=== PATIENT | male | born 1985 | race African-American/Black ===

== ENCOUNTER 2021-05-25 08:06 | Inpatient (IN) | payer BC, MEDICAID ==
[~2021-05-25] VITALS: Ht 177.8 cm; Wt 95.3 kg
[2021-05-25] MEDS ORDERED: ONDANSETRON HCL 4MG/2ML INJ IV STA (08:18)
[2021-05-25] MEDS ORDERED: KETOROLAC 30MG/ML VIAL IV STA (08:18)
[2021-05-25] MEDS ORDERED: AZITHROMYCIN 500MG/250ML 250 ML IV ONE (09:30)
[2021-05-25] MEDS ORDERED: CEFTRIAXONE 1 G PREMIX 50 ML IV ONE (09:30)
[2021-05-25] MEDS ORDERED: HYDRALAZINE 20MG/ML VIAL IV ONE (10:00)
[2021-05-25] MEDS ORDERED: BUPRENORPHINE 8MG SL TABLET SL ONE ×2 (10:00→13:15)
[2021-05-25 10:18] LABS: BG BASE EXCESS -3.4 mmol/L (-2.0-2.0); BG DEOXYHEMOGLOBIN 12.4 % (0.0-5.0); BG FRACTION INSPIRED OXYGEN 100; BG HCO3 ACT 20.6 mmol/L (22.0-26.0); BG METHEMOGLOBIN 0.5 % (0.0-1.5); BG OXYGEN SATURATION 87.5 % (92.0-98.5); BG OXYHEMOGLOBIN 87.1 % (94.0-97.0); BG PCO2 35.2 mmHg (35.0-45.0); BG PH 7.386 (7.350-7.450); BG PO2 51.8 mmHg (75.0-100.0); BG SAMPLE SITE RIGHT RADIAL; BG TOTAL HEMOGLOBIN 18.4 g/dL (12.0-18.0); BG VENT MODE MASK - NRB
[2021-05-25 10:34] LABS: HEMATOCRIT. 51.5 % (42.0-52.0); HEMOGLOBIN. 17.4 g/dL (14.0-18.0); MEAN CORPUSCULAR HEMOGLOBIN 29.5 pg (28.0-32.0); MEAN CORPUSCULAR VOLUME 87.3 fL (80.0-94.0); MEAN PLATELET VOLUME 8.2 fl (7.4-10.4); PLATELET 197 x1000/uL (130-400); RED CELL DISTRIBUTION WIDTH 13.2 % (11.6-14.6)
[2021-05-25 10:40] LABS: CHLORIDE 102 mEq/L (98-107)
[2021-05-25 10:44] LABS: ETHANOL BLOOD < 10 mg/dL
[2021-05-25 11:08] LABS: PLATELET ESTIMATE NORMAL
[2021-05-25] MEDS ORDERED: LORAZEPAM 2MG/ML CPJ IV ONE (12:00)
[2021-05-25] MEDS ORDERED: SODIUM CHLORIDE 0.9% 1,000 ML IV ONE (12:00)
[2021-05-25] MEDS ORDERED: IPRATROPIUM BROMIDE (0.02%) 0.5MG/2.5ML NEB HHN PRN (13:15)
[2021-05-25] MEDS: PIPERACILLIN/TAZ 3.375G PREMIX 50 ML IV SCH ×2 (15:21→23:46)
[2021-05-25] MEDS: LORAZEPAM 2MG/ML CPJ IV PRN (17:37)
[2021-05-25] MEDS ORDERED: IOHEXOL-350 100 ML BOTTLE ONE (23:55)
[2021-05-26] VITALS (27 sets, daily range): BP systolic 91–217; BP diastolic 51–121
[2021-05-26] MEDS: LORAZEPAM 2MG/ML CPJ IV PRN ×3 (01:02→10:47)
[2021-05-26] MEDS: ONDANSETRON HCL 4MG/2ML INJ IV PRN (01:02)
[2021-05-26] MEDS ORDERED: HALOPERIDOL LACTATE 5MG/ML VIAL IM NR (04:30)
[2021-05-26] MEDS: PIPERACILLIN/TAZ 3.375G PREMIX 50 ML IV SCH (06:49)
[2021-05-26] MEDS ORDERED: LIDOCAINE HCL/PF 1% 2ML VIAL ONE (11:00)
[2021-05-26 11:40] LABS: BG BASE EXCESS -0.3 mmol/L (-2.0-2.0); BG CARBOXYHEMOGLOBIN 0.2 % (0.5-1.5); BG DEOXYHEMOGLOBIN 16.9 % (0.0-5.0); BG HCO3 ACT 24.2 mmol/L (22.0-26.0); BG METHEMOGLOBIN 0.4 % (0.0-1.5); BG OXYHEMOGLOBIN 82.5 % (94.0-97.0); BG PCO2 39.4 mmHg (35.0-45.0); BG PH 7.406 (7.350-7.450); BG PO2 45.7 mmHg (75.0-100.0); BG SAMPLE SITE RIGHT RADIAL; BG TOTAL HEMOGLOBIN 15.7 g/dL (12.0-18.0); BG VENT MODE MASK - BIPAP
[2021-05-26] MEDS ORDERED: ETOMIDATE 2MG/ML 10ML VIAL IV ONE (12:22)
[2021-05-26] MEDS ORDERED: ATROPINE SULFATE 1MG/10ML SYR ONE (12:22)
[2021-05-26] MEDS ORDERED: VECURONIUM BROMIDE 10 MG/VIAL IV ONE (12:22)
[2021-05-26 13:07] LABS: HEMATOCRIT. 43.6 % (42.0-52.0); HEMOGLOBIN. 14.8 g/dL (14.0-18.0); MEAN CORPUSCULAR HEMOGLOBIN 29.4 pg (28.0-32.0); MEAN CORPUSCULAR VOLUME 86.6 fL (80.0-94.0); MEAN PLATELET VOLUME 8.4 fl (7.4-10.4); PLATELET 120 x1000/uL (130-400); RED BLOOD CELL COUNT 5.04 mill/uL (4.7-6.1); RED CELL DISTRIBUTION WIDTH 12.8 % (11.6-14.6)
[2021-05-26 13:17] LABS: CHLORIDE 101 mEq/L (98-107)
[2021-05-26] MEDS ORDERED: IPRATROPIUM/ALBUTEROL 0.5-3(2.5)MG/3ML NEB HHN PRN (13:45)
[2021-05-26] MEDS: PIPERACILLIN/TAZOBACTAM 3.375G in DEXT 5% WATER 50ML IV SCH ×2 (14:00→22:03)
[2021-05-26] MEDS: PROPOFOL 10MG/ML 100ML 100 ML IV PRN ×2 (16:46→22:08)
[2021-05-26] MEDS: FENTANYL CITRATE/PF 2,500 MCG in SODIUM CHLORIDE 0.9% 200 ML IV PRN (16:46)
[2021-05-26 18:10] LABS: CLARITY URINE CLEAR (CLEAR); COLOR URINE DARK YELLOW (YELLOW); KETONES URINE 1+ (NEGATIVE); LEUKOCYTE ESTERASE URINE NEGATIVE (NEGATIVE); NITRITE URINE NEGATIVE (NEGATIVE); OCCULT BLOOD URINE 2+ (NEGATIVE); PROTEIN URINE 2+ (NEGATIVE); SPECIFIC GRAVITY URINE 1.054 (1.005-1.030)
[2021-05-26 18:24] LABS: *AMPHETAMINES SCREEN URINE PRESUMTIVE POSITIVE (NEGATIVE); *BARBITURATES SCREEN URINE NEGATIVE (NEGATIVE); *BENZODIAZEPINES SCREEN URINE PRESUMTIVE POSITIVE (NEGATIVE); *COCAINE SCREEN URINE NEGATIVE (NEGATIVE)
[2021-05-26 18:25] LABS: CANNABINOID URINE SCREEN PRESUMTIVE POSITIVE (NEGATIVE); OPIATES URINE SCREEN NEGATIVE (NEGATIVE); PHENCYCLIDINE URINE SCREEN NEGATIVE (NEGATIVE)
[2021-05-26] MEDS ORDERED: PHENYLEPHRINE 100 MG in DEXT 5% WATER 240 ML IV PRN (20:00)
[2021-05-26] MEDS ORDERED: NOREPINEPHRINE 32 MG in DEXT 5% WATER 218 ML IV PRN (20:00)
[2021-05-26] MEDS ORDERED: DEXT 5%/0.45% NACL 1000ML 1,000 ML IV SCH (20:00)
[2021-05-26] MEDS: IPRATROPIUM/ALBUTEROL 0.5-3(2.5)MG/3ML NEB HHN SCH (20:20)
[2021-05-26 21:08] LABS: PLATELET ESTIMATE DECREASED
[2021-05-26] MEDS ORDERED: DEXTROSE 50% WATER 50ML SYRINGE IV PRN (21:45)
[2021-05-26] MEDS: METHYLPREDNISOLONE SOD SUCC 125 MG/2 ML VIAL IV SCH (22:02)
[2021-05-26 22:34] LABS: BG BASE EXCESS -0.8 mmol/L (-2.0-2.0); BG CARBOXYHEMOGLOBIN 0.3 % (0.5-1.5); BG FRACTION INSPIRED OXYGEN 100; BG HCO3 ACT 24.2 mmol/L (22.0-26.0); BG METHEMOGLOBIN 0.2 % (0.0-1.5); BG OXYGEN SATURATION 86.9 % (92.0-98.5); BG OXYHEMOGLOBIN 86.5 % (94.0-97.0); BG PCO2 41.3 mmHg (35.0-45.0); BG PH 7.386 (7.350-7.450); BG PO2 51.3 mmHg (75.0-100.0); BG SAMPLE SITE RIGHT BRACHIAL; BG TOTAL HEMOGLOBIN 14.5 g/dL (12.0-18.0); BG VENT MODE VENT - AC
[2021-05-27] VITALS (74 sets, daily range): BP systolic 99–186; BP diastolic 49–145
[2021-05-27] MEDS: IPRATROPIUM/ALBUTEROL 0.5-3(2.5)MG/3ML NEB HHN SCH ×7 (00:06→23:50)
[2021-05-27] MEDS: BLOOD SUGAR DIAGNOSTIC STRIP TEST SCH ×5 (00:22→23:29)
[2021-05-27] MEDS: PROPOFOL 10MG/ML 100ML 100 ML IV PRN ×6 (02:24→23:38)
[2021-05-27] MEDS: LORAZEPAM 2MG/ML CPJ IV PRN (02:35)
[2021-05-27] MEDS: MIDAZOLAM HCL 100 MG in SODIUM CHLORIDE 0.9% 80 ML IV PRN ×2 (05:12→14:00)
[2021-05-27] MEDS: INSULIN LISPRO 100 UNITS/ML SUBCUT SCH ×5 (06:00→23:13)
[2021-05-27 06:07] LABS: MEAN CORPUSCULAR HEMOGLOBIN 29.9 pg (28.0-32.0); MEAN CORPUSCULAR VOLUME 87.5 fL (80.0-94.0); MEAN PLATELET VOLUME 9.5 fl (7.4-10.4); PLATELET 118 x1000/uL (130-400); RED BLOOD CELL COUNT 4.69 mill/uL (4.7-6.1); RED CELL DISTRIBUTION WIDTH 13.1 % (11.6-14.6)
[2021-05-27 06:21] LABS: INR 1.2; PARTIAL THROMBOPLASTIN TIME 37.2 sec (23.4-31.0); PROTHROMBIN TIME 12.4 sec (9.6-11.0)
[2021-05-27] MEDS: PIPERACILLIN/TAZOBACTAM 3.375G in DEXT 5% WATER 50ML IV SCH (06:25)
[2021-05-27] MEDS: METHYLPREDNISOLONE SOD SUCC 125 MG/2 ML VIAL IV SCH ×3 (06:26→21:22)
[2021-05-27 06:31] LABS: PHOSPHORUS 2.3 mg/dL (2.5-4.9)
[2021-05-27 08:02] LABS: PLATELET ESTIMATE DECREASED
[2021-05-27] MEDS ORDERED: LIDOCAINE HCL 1% 10 MG/ML 10ML VIAL ONE (08:35)
[2021-05-27 09:43] LABS: BG BASE EXCESS -0.5 mmol/L (-2.0-2.0); BG CARBOXYHEMOGLOBIN 0.3 % (0.5-1.5); BG DEOXYHEMOGLOBIN 3.8 % (0.0-5.0); BG FRACTION INSPIRED OXYGEN 100; BG HCO3 ACT 25.1 mmol/L (22.0-26.0); BG METHEMOGLOBIN 0.3 % (0.0-1.5); BG OXYGEN SATURATION 96.2 % (92.0-98.5); BG OXYHEMOGLOBIN 95.6 % (94.0-97.0); BG PCO2 44.6 mmHg (35.0-45.0); BG PH 7.368 (7.350-7.450); BG PO2 84.4 mmHg (75.0-100.0); BG SAMPLE SITE RIGHT RADIAL; BG TOTAL HEMOGLOBIN 13.8 g/dL (12.0-18.0); BG VENT MODE VENT - AC
[2021-05-27] MEDS: METOCLOPRAMIDE HCL 10MG/2ML VIAL IV SCH ×3 (12:09→23:13)
[2021-05-27] MEDS: DOCUSATE SODIUM SUGAR FREE 100MG/10ML UDC NG SCH (12:09)
[2021-05-27] MEDS: SODIUM CHLORIDE 0.9% 1,000 ML IV SCH ×2 (12:09→21:21)
[2021-05-27] MEDS: FENTANYL CITRATE/PF 2,500 MCG in SODIUM CHLORIDE 0.9% 200 ML IV PRN (12:16)
[2021-05-27] MEDS: ACETYLCYSTEINE 100MG/ML 10% VIAL 4ML INH SCH ×2 (12:52→16:15)
[2021-05-27] MEDS: MEROPENEM 1,000 MG in SODIUM CHLORIDE 0.9% 100 ML IV SCH ×2 (13:57→21:22)
[2021-05-27] MEDS ORDERED: POTASSIUM-SODIUM PHOSPHATE POWDER PACKET PO NR (14:00)
[2021-05-27] MEDS: VANCOMYCIN 1GM PMX (XELLIA) 200 ML IV SCH (14:53)
[2021-05-28] VITALS (61 sets, daily range): BP systolic 122–183; BP diastolic 61–100
[2021-05-28] MEDS: MIDAZOLAM HCL 100 MG in SODIUM CHLORIDE 0.9% 80 ML IV PRN ×3 (00:04→21:17)
[2021-05-28] MEDS: HYDRALAZINE 20MG/ML VIAL IV PRN (00:10)
[2021-05-28] MEDS: ACETYLCYSTEINE 100MG/ML 10% VIAL 4ML INH SCH ×2 (00:59→15:46)
[2021-05-28] MEDS: VANCOMYCIN 1GM PMX (XELLIA) 200 ML IV SCH ×2 (04:54→17:12)
[2021-05-28] MEDS: PROPOFOL 10MG/ML 100ML 100 ML IV PRN ×6 (04:55→21:15)
[2021-05-28] MEDS: MEROPENEM 1,000 MG in SODIUM CHLORIDE 0.9% 100 ML IV SCH ×3 (05:25→21:21)
[2021-05-28] MEDS: METOCLOPRAMIDE HCL 10MG/2ML VIAL IV SCH ×4 (05:26→23:58)
[2021-05-28] MEDS: METHYLPREDNISOLONE SOD SUCC 125 MG/2 ML VIAL IV SCH ×3 (05:26→21:12)
[2021-05-28] MEDS: BLOOD SUGAR DIAGNOSTIC STRIP TEST SCH ×4 (05:26→23:58)
[2021-05-28] MEDS: INSULIN LISPRO 100 UNITS/ML SUBCUT SCH ×4 (05:27→23:59)
[2021-05-28 07:17] LABS: HEMATOCRIT. 34.1 % (42.0-52.0); HEMOGLOBIN. 11.7 g/dL (14.0-18.0); MEAN CORPUSCULAR HEMOGLOBIN 29.8 pg (28.0-32.0); MEAN CORPUSCULAR VOLUME 86.6 fL (80.0-94.0); MEAN PLATELET VOLUME 9.2 fl (7.4-10.4); PLATELET 112 x1000/uL (130-400); RED BLOOD CELL COUNT 3.93 mill/uL (4.7-6.1); RED CELL DISTRIBUTION WIDTH 12.9 % (11.6-14.6)
[2021-05-28 07:39] LABS: CHLORIDE 104 mEq/L (98-107)
[2021-05-28] MEDS: SODIUM CHLORIDE 0.9% 1,000 ML IV SCH ×2 (07:40→18:00)
[2021-05-28] MEDS: FENTANYL CITRATE/PF 2,500 MCG in SODIUM CHLORIDE 0.9% 200 ML IV PRN ×2 (07:42→21:18)
[2021-05-28 07:45] LABS: PHOSPHORUS 1.5 mg/dL (2.5-4.9)
[2021-05-28 08:26] LABS: BG BASE EXCESS -1.7 mmol/L (-2.0-2.0); BG CARBOXYHEMOGLOBIN 0.2 % (0.5-1.5); BG DEOXYHEMOGLOBIN 0.6 % (0.0-5.0); BG FRACTION INSPIRED OXYGEN 90; BG METHEMOGLOBIN 0.7 % (0.0-1.5); BG OXYGEN SATURATION 99.4 % (92.0-98.5); BG OXYHEMOGLOBIN 98.5 % (94.0-97.0); BG PCO2 38.7 mmHg (35.0-45.0); BG PH 7.392 (7.350-7.450); BG SAMPLE SITE LEFT RADIAL; BG VENT MODE VENT - AC
[2021-05-28] MEDS: IPRATROPIUM/ALBUTEROL 0.5-3(2.5)MG/3ML NEB HHN SCH ×4 (08:40→20:37)
[2021-05-28 09:11] LABS: PLATELET ESTIMATE DECREASED
[2021-05-28] MEDS ORDERED: POTASSIUM PHOS,M-BASIC-D-BASIC 30 MMOL in SODIUM CHLORIDE 0.9% 500 ML IV NR (10:00)
[2021-05-28] MEDS: THIAMINE HCL 100MG TABLET PO SCH (10:02)
[2021-05-28] MEDS: FOLIC ACID 1MG TABLET PO SCH (10:02)
[2021-05-28] MEDS: MULTIVITAMINS,THER W-MINERALS TABLET PO SCH (10:02)
[2021-05-28] MEDS: DOCUSATE SODIUM SUGAR FREE 100MG/10ML UDC NG SCH (10:03)
[2021-05-28] MEDS ORDERED: VANCOMYCIN 1GM PMX (XELLIA) 200 ML IV SCH (14:00)
[2021-05-29] VITALS (45 sets, daily range): BP systolic 130–174; BP diastolic 61–96
[2021-05-29] MEDS: IPRATROPIUM/ALBUTEROL 0.5-3(2.5)MG/3ML NEB HHN SCH ×6 (00:59→20:29)
[2021-05-29] MEDS: ACETYLCYSTEINE 100MG/ML 10% VIAL 4ML INH SCH ×4 (00:59→20:29)
[2021-05-29] MEDS: VANCOMYCIN 1GM PMX (XELLIA) 200 ML IV SCH (03:39)
[2021-05-29] MEDS: PROPOFOL 10MG/ML 100ML 100 ML IV PRN ×5 (03:48→23:40)
[2021-05-29] MEDS: METHYLPREDNISOLONE SOD SUCC 125 MG/2 ML VIAL IV SCH ×3 (05:54→22:12)
[2021-05-29] MEDS: MEROPENEM 1,000 MG in SODIUM CHLORIDE 0.9% 100 ML IV SCH ×3 (05:54→22:13)
[2021-05-29] MEDS: BLOOD SUGAR DIAGNOSTIC STRIP TEST SCH ×3 (05:54→18:08)
[2021-05-29] MEDS: METOCLOPRAMIDE HCL 10MG/2ML VIAL IV SCH ×3 (05:54→17:51)
[2021-05-29] MEDS: INSULIN LISPRO 100 UNITS/ML SUBCUT SCH ×3 (05:55→18:00)
[2021-05-29] MEDS: MIDAZOLAM HCL 100 MG in SODIUM CHLORIDE 0.9% 80 ML IV PRN ×2 (06:31→18:01)
[2021-05-29 06:44] LABS: CHLORIDE 111 mEq/L (98-107)
[2021-05-29 06:51] LABS: PHOSPHORUS 2.1 mg/dL (2.5-4.9)
[2021-05-29 07:04] LABS: HEMATOCRIT. 31.7 % (42.0-52.0); HEMOGLOBIN. 10.8 g/dL (14.0-18.0); MEAN CORPUSCULAR HEMOGLOBIN 29.9 pg (28.0-32.0); MEAN CORPUSCULAR VOLUME 87.4 fL (80.0-94.0); MEAN PLATELET VOLUME 9.7 fl (7.4-10.4); PLATELET 123 x1000/uL (130-400); RED BLOOD CELL COUNT 3.62 mill/uL (4.7-6.1); RED CELL DISTRIBUTION WIDTH 13.4 % (11.6-14.6)
[2021-05-29] MEDS ORDERED: POTASSIUM PHOS,M-BASIC-D-BASIC 20 MMOL in DEXT 5% WATER 243.3333 ML IV SCH (08:30)
[2021-05-29 09:16] LABS: BG BASE EXCESS 0.2 mmol/L (-2.0-2.0); BG CARBOXYHEMOGLOBIN 0.3 % (0.5-1.5); BG DEOXYHEMOGLOBIN 0.8 % (0.0-5.0); BG FRACTION INSPIRED OXYGEN 70; BG HCO3 ACT 25.4 mmol/L (22.0-26.0); BG METHEMOGLOBIN 0.4 % (0.0-1.5); BG OXYGEN SATURATION 99.2 % (92.0-98.5); BG OXYHEMOGLOBIN 98.5 % (94.0-97.0); BG PCO2 43.5 mmHg (35.0-45.0); BG PH 7.384 (7.350-7.450); BG PO2 287.5 mmHg (75.0-100.0); BG SAMPLE SITE RIGHT RADIAL; BG TOTAL HEMOGLOBIN 11.6 g/dL (12.0-18.0); BG VENT MODE VENT - AC
[2021-05-29] MEDS: MULTIVITAMINS,THER W-MINERALS TABLET PO SCH (09:30)
[2021-05-29] MEDS: THIAMINE HCL 100MG TABLET PO SCH (09:30)
[2021-05-29] MEDS: DOCUSATE SODIUM SUGAR FREE 100MG/10ML UDC NG SCH (09:30)
[2021-05-29] MEDS: FOLIC ACID 1MG TABLET PO SCH (09:30)
[2021-05-29] MEDS: AMLODIPINE 2.5MG TABLET PO SCH (09:30)
[2021-05-29 11:53] LABS: PLATELET ESTIMATE SLIGHTLY DECREASED
[2021-05-29 12:47] LABS: METHADONE URINE SCREEN NEGATIVE (NEGATIVE)
[2021-05-29] MEDS: VANCOMYCIN 1.25GM PMX (XELLIA) 250 ML IV SCH ×2 (12:56→22:13)
[2021-05-29] MEDS: FENTANYL CITRATE/PF 2,500 MCG in SODIUM CHLORIDE 0.9% 200 ML IV PRN (15:03)
[2021-05-29] MEDS: HYDRALAZINE 20MG/ML VIAL IV PRN (18:01)
[2021-05-30] VITALS (51 sets, daily range): BP systolic 123–176; BP diastolic 50–95
[2021-05-30] MEDS: METOCLOPRAMIDE HCL 10MG/2ML VIAL IV SCH ×4 (00:08→17:59)
[2021-05-30] MEDS: BLOOD SUGAR DIAGNOSTIC STRIP TEST SCH ×4 (00:09→17:59)
[2021-05-30] MEDS: IPRATROPIUM/ALBUTEROL 0.5-3(2.5)MG/3ML NEB HHN SCH ×7 (00:18→23:50)
[2021-05-30] MEDS: MIDAZOLAM HCL 100 MG in SODIUM CHLORIDE 0.9% 80 ML IV PRN ×2 (04:53→16:39)
[2021-05-30] MEDS: PROPOFOL 10MG/ML 100ML 100 ML IV PRN ×6 (05:11→23:41)
[2021-05-30] MEDS: INSULIN LISPRO 100 UNITS/ML SUBCUT SCH ×4 (05:36→17:59)
[2021-05-30] MEDS: METHYLPREDNISOLONE SOD SUCC 125 MG/2 ML VIAL IV SCH (05:41)
[2021-05-30] MEDS: MEROPENEM 1,000 MG in SODIUM CHLORIDE 0.9% 100 ML IV SCH ×3 (05:41→22:21)
[2021-05-30] MEDS: VANCOMYCIN 1.25GM PMX (XELLIA) 250 ML IV SCH ×2 (05:50→23:47)
[2021-05-30 05:56] LABS: HEMATOCRIT. 33.8 % (42.0-52.0); HEMOGLOBIN. 11.1 g/dL (14.0-18.0); MEAN CORPUSCULAR HEMOGLOBIN 28.9 pg (28.0-32.0); MEAN CORPUSCULAR VOLUME 87.8 fL (80.0-94.0); MEAN PLATELET VOLUME 9.1 fl (7.4-10.4); PLATELET 138 x1000/uL (130-400); RED BLOOD CELL COUNT 3.85 mill/uL (4.7-6.1)
[2021-05-30 05:57] LABS: CHLORIDE 112 mEq/L (98-107)
[2021-05-30 06:04] LABS: PHOSPHORUS 2.3 mg/dL (2.5-4.9)
[2021-05-30] MEDS: FENTANYL CITRATE/PF 2,500 MCG in SODIUM CHLORIDE 0.9% 200 ML IV PRN ×2 (07:16→16:39)
[2021-05-30] MEDS: ACETYLCYSTEINE 100MG/ML 10% VIAL 4ML INH SCH ×3 (07:48→23:50)
[2021-05-30] MEDS: DOCUSATE SODIUM SUGAR FREE 100MG/10ML UDC NG SCH (08:57)
[2021-05-30] MEDS: HYDRALAZINE 20MG/ML VIAL IV PRN (08:58)
[2021-05-30] MEDS: THIAMINE HCL 100MG TABLET PO SCH (08:58)
[2021-05-30] MEDS: AMLODIPINE 2.5MG TABLET PO SCH (08:58)
[2021-05-30] MEDS: MULTIVITAMINS,THER W-MINERALS TABLET PO SCH (08:58)
[2021-05-30] MEDS: FOLIC ACID 1MG TABLET PO SCH (08:58)
[2021-05-30] MEDS ORDERED: HALOPERIDOL LACTATE 5MG/ML VIAL IM SCH (09:00)
[2021-05-30] MEDS ORDERED: RISPERIDONE 0.5MG TABLET PO SCH (09:00)
[2021-05-30] MEDS: RISPERIDONE 0.5MG TABLET PO SCH (09:03)
[2021-05-30 10:09] LABS: BG CARBOXYHEMOGLOBIN 0.3 % (0.5-1.5); BG DEOXYHEMOGLOBIN 1.1 % (0.0-5.0); BG FRACTION INSPIRED OXYGEN 40; BG HCO3 ACT 19.9 mmol/L (22.0-26.0); BG METHEMOGLOBIN 0.2 % (0.0-1.5); BG OXYGEN SATURATION 98.9 % (92.0-98.5); BG OXYHEMOGLOBIN 98.4 % (94.0-97.0); BG PCO2 20.9 mmHg (35.0-45.0); BG PH 7.597 (7.350-7.450); BG PO2 157.3 mmHg (75.0-100.0); BG SAMPLE SITE LEFT RADIAL; BG TOTAL HEMOGLOBIN 12.1 g/dL (12.0-18.0); BG VENT MODE VENT - AC
[2021-05-30] MEDS ORDERED: POTASSIUM PHOS,M-BASIC-D-BASIC 15 MMOL in DEXT 5% WATER 245 ML IV SCH (12:00)
[2021-05-30 15:10] LABS: ANTI-MYELOPEROXIDASE AB < 9.0 U/mL (0.0-9.0); ANTI-PROTEINASE 3 ABS < 3.5 U/mL (0.0-3.5)
[2021-05-30] MEDS: METHYLPREDNISOLONE SOD SUCC 40 MG/ML VIAL IV SCH ×2 (16:34→22:21)
[2021-05-30 16:52] LABS: PLATELET ESTIMATE NORMAL
[2021-05-31] VITALS (49 sets, daily range): BP systolic 130–222; BP diastolic 66–141
[2021-05-31] MEDS: METOCLOPRAMIDE HCL 10MG/2ML VIAL IV SCH ×4 (03:11→17:27)
[2021-05-31] MEDS: MIDAZOLAM HCL 100 MG in SODIUM CHLORIDE 0.9% 80 ML IV PRN (03:24)
[2021-05-31] MEDS: IPRATROPIUM/ALBUTEROL 0.5-3(2.5)MG/3ML NEB HHN SCH ×5 (03:55→20:22)
[2021-05-31] MEDS: PROPOFOL 10MG/ML 100ML 100 ML IV PRN ×2 (04:00→07:30)
[2021-05-31] MEDS: INSULIN LISPRO 100 UNITS/ML SUBCUT SCH ×4 (06:00→17:27)
[2021-05-31 06:04] LABS: HEMOGLOBIN. 11.4 g/dL (14.0-18.0); MEAN CORPUSCULAR HEMOGLOBIN 29.3 pg (28.0-32.0); MEAN CORPUSCULAR VOLUME 87.5 fL (80.0-94.0); MEAN PLATELET VOLUME 8.7 fl (7.4-10.4); PLATELET 144 x1000/uL (130-400); RED BLOOD CELL COUNT 3.89 mill/uL (4.7-6.1); RED CELL DISTRIBUTION WIDTH 13.5 % (11.6-14.6)
[2021-05-31] MEDS: MEROPENEM 1,000 MG in SODIUM CHLORIDE 0.9% 100 ML IV SCH ×3 (06:18→22:46)
[2021-05-31] MEDS: METHYLPREDNISOLONE SOD SUCC 40 MG/ML VIAL IV SCH ×2 (06:19→17:31)
[2021-05-31] MEDS: BLOOD SUGAR DIAGNOSTIC STRIP TEST SCH ×4 (06:19→17:27)
[2021-05-31] MEDS: FENTANYL CITRATE/PF 2,500 MCG in SODIUM CHLORIDE 0.9% 200 ML IV PRN (06:22)
[2021-05-31] MEDS: VANCOMYCIN 1.25GM PMX (XELLIA) 250 ML IV SCH ×2 (08:05→21:19)
[2021-05-31] MEDS: RISPERIDONE 0.5MG TABLET PO SCH (08:05)
[2021-05-31] MEDS: THIAMINE HCL 100MG TABLET PO SCH (08:06)
[2021-05-31] MEDS: FOLIC ACID 1MG TABLET PO SCH (08:06)
[2021-05-31] MEDS: DOCUSATE SODIUM SUGAR FREE 100MG/10ML UDC NG SCH (08:06)
[2021-05-31] MEDS: MULTIVITAMINS,THER W-MINERALS TABLET PO SCH (08:08)
[2021-05-31] MEDS: ACETYLCYSTEINE 100MG/ML 10% VIAL 4ML INH SCH (08:55)
[2021-05-31] MEDS ORDERED: AMLODIPINE 5MG TABLET PO SCH (09:00)
[2021-05-31 09:07] LABS: BG CARBOXYHEMOGLOBIN 0.6 % (0.5-1.5); BG DEOXYHEMOGLOBIN 7.7 % (0.0-5.0); BG FRACTION INSPIRED OXYGEN 35; BG HCO3 ACT 25.1 mmol/L (22.0-26.0); BG METHEMOGLOBIN 0.4 % (0.0-1.5); BG OXYGEN SATURATION 92.2 % (92.0-98.5); BG OXYHEMOGLOBIN 91.3 % (94.0-97.0); BG PCO2 38.4 mmHg (35.0-45.0); BG PH 7.434 (7.350-7.450); BG PO2 60.9 mmHg (75.0-100.0); BG SAMPLE SITE RIGHT RADIAL; BG VENT MODE VENT - AC
[2021-05-31] MEDS ORDERED: FENTANYL CITRATE/PF 2,500 MCG in SODIUM CHLORIDE 0.9% 200 ML IV PRN (09:45)
[2021-05-31] MEDS: ACETAMINOPHEN 650MG/20.3ML UDC PO PRN ×2 (09:51→17:31)
[2021-05-31] MEDS: CLONIDINE 0.1MG TABLET PO PRN ×2 (09:51→17:31)
[2021-05-31] MEDS ORDERED: HALOPERIDOL LACTATE 5MG/ML VIAL IM NR (10:30)
[2021-05-31 10:32] LABS: PLATELET ESTIMATE NORMAL
[2021-05-31] MEDS ORDERED: FENTANYL 2500MCG/250ML PMX 250 ML IV PRN (11:15)
[2021-05-31] MEDS ORDERED: DEXTROSE 50% WATER 50ML SYRINGE IV PRN (11:15)
[2021-05-31] MEDS ORDERED: LORAZEPAM 2MG/ML CPJ IV NR (12:30)
[2021-05-31] MEDS: ENOXAPARIN 40MG/0.4ML SYR SUBCUT SCH (14:12)
[2021-05-31] MEDS: HYDRALAZINE 20MG/ML VIAL IV PRN (14:58)
[2021-05-31] MEDS ORDERED: AMLODIPINE 5MG TABLET PO NR (15:00)
[2021-05-31 15:08] LABS: ANA IFA Positive (.)
[2021-05-31 15:52] LABS: CHLORIDE 108 mEq/L (98-107)
[2021-05-31 15:59] LABS: PHOSPHORUS 1.5 mg/dL (2.5-4.9)
[2021-05-31] MEDS ORDERED: HYDRALAZINE 20MG/ML VIAL IV SCH (18:00)
[2021-05-31] MEDS ORDERED: POTASSIUM PHOS,M-BASIC-D-BASIC 20 MMOL in DEXT 5% WATER 243.3333 ML IV ONE (21:00)
[2021-05-31] MEDS ORDERED: POTASSIUM CHLORIDE INJ 40 MEQ in DEXT 5% WATER 250 ML IV ONE (21:00)
[2021-05-31] MEDS: KCL 20MEQ/100ML X 2 FOR TOTAL KCL 40MEQ/200ML IV SCH ×2 (21:17→22:05)
[2021-05-31] MEDS: RISPERIDONE 1MG TABLET PO SCH (21:23)
[2021-06-01] VITALS (62 sets, daily range): BP systolic 147–191; BP diastolic 73–144
[2021-06-01] MEDS: BLOOD SUGAR DIAGNOSTIC STRIP TEST SCH ×4 (00:03→17:32)
[2021-06-01] MEDS: ACETAMINOPHEN 650MG/20.3ML UDC PO PRN ×2 (00:04→10:41)
[2021-06-01] MEDS: HYDRALAZINE 20MG/ML VIAL IV PRN ×3 (00:04→15:52)
[2021-06-01] MEDS: IPRATROPIUM/ALBUTEROL 0.5-3(2.5)MG/3ML NEB HHN SCH ×6 (00:48→20:37)
[2021-06-01] MEDS: ACETYLCYSTEINE 100MG/ML 10% VIAL 4ML INH SCH ×3 (00:49→14:00)
[2021-06-01] MEDS: INSULIN LISPRO 100 UNITS/ML SUBCUT SCH ×4 (06:00→17:32)
[2021-06-01] MEDS: METOCLOPRAMIDE HCL 10MG/2ML VIAL IV SCH ×5 (06:00→23:05)
[2021-06-01 06:03] LABS: HEMATOCRIT. 39.9 % (42.0-52.0); HEMOGLOBIN. 13.2 g/dL (14.0-18.0); MEAN CORPUSCULAR HEMOGLOBIN 28.8 pg (28.0-32.0); MEAN CORPUSCULAR VOLUME 86.9 fL (80.0-94.0); MEAN PLATELET VOLUME 8.7 fl (7.4-10.4); PLATELET 161 x1000/uL (130-400); RED BLOOD CELL COUNT 4.59 mill/uL (4.7-6.1); RED CELL DISTRIBUTION WIDTH 13.5 % (11.6-14.6)
[2021-06-01 06:08] LABS: CHLORIDE 105 mEq/L (98-107)
[2021-06-01 06:13] LABS: PHOSPHORUS 3.3 mg/dL (2.5-4.9)
[2021-06-01] MEDS: METHYLPREDNISOLONE SOD SUCC 40 MG/ML VIAL IV SCH ×2 (06:25→17:34)
[2021-06-01] MEDS: MEROPENEM 1,000 MG in SODIUM CHLORIDE 0.9% 100 ML IV SCH (06:25)
[2021-06-01] MEDS: ONDANSETRON HCL 4MG/2ML INJ IV PRN ×3 (07:48→22:13)
[2021-06-01] MEDS: ENOXAPARIN 40MG/0.4ML SYR SUBCUT SCH (07:51)
[2021-06-01] MEDS: RISPERIDONE 1MG TABLET PO SCH ×2 (07:51→21:04)
[2021-06-01] MEDS: VANCOMYCIN 1.25GM PMX (XELLIA) 250 ML IV SCH (07:51)
[2021-06-01] MEDS: AMLODIPINE 10MG TABLET PO SCH (07:52)
[2021-06-01] MEDS: MULTIVITAMINS,THER W-MINERALS TABLET PO SCH (07:53)
[2021-06-01 08:38] LABS: PLATELET ESTIMATE NORMAL
[2021-06-01] MEDS: DOCUSATE SODIUM SUGAR FREE 100MG/10ML UDC NG SCH (08:54)
[2021-06-01 09:06] LABS: GLOMERULAR BASEMENT MEMB AB 4 units (0-20)
[2021-06-01] MEDS: CLONIDINE 0.1MG TABLET PO PRN ×2 (11:01→17:47)
[2021-06-01] MEDS ORDERED: LORAZEPAM 2MG/ML CPJ IV SCH (11:45)
[2021-06-01] MEDS: DEXT 5%/0.9% NACL 1,000 ML IV SCH (11:55)
[2021-06-01 13:06] LABS: ATYPICAL P-ANCA <1:20 titer (Neg:<1:20); CYTOPLASMIC C-ANCA <1:20 titer (Neg:<1:20); PERINUCLEAR P-ANCA <1:20 titer (Neg:<1:20)
[2021-06-01 13:08] LABS: CLARITY URINE CLOUDY (CLEAR); COLOR URINE DK YELLOW (YELLOW); KETONES URINE 2+ (NEGATIVE); LEUKOCYTE ESTERASE URINE NEGATIVE (NEGATIVE); NITRITE URINE NEGATIVE (NEGATIVE); OCCULT BLOOD URINE 3+ (NEGATIVE); PROTEIN URINE 1+ (NEGATIVE); SPECIFIC GRAVITY URINE 1.028 (1.005-1.030); UROBILINOGEN URINE 0.2 E.U./dL (0.2-1.0)
[2021-06-01] MEDS: DILTIAZEM HCL 125 MG in DEXT 5% WATER 100 ML IV PRN (20:05)
[2021-06-01] MEDS ORDERED: VANCOMYCIN 1,250 MG in DEXT 5% WATER 250 ML IV SCH (21:00)
[2021-06-01] MEDS ORDERED: VANCOMYCIN IV SCH (21:00)
[2021-06-01] MEDS ORDERED: WATER IV SCH (21:00)
[2021-06-01] MEDS ORDERED: DEXT 5% IV SCH (21:00)
[2021-06-01] MEDS: VANCOMYCIN 1250MG in DEXTROSE 5% WATER 250ML IV SCH (21:03)
[2021-06-01] MEDS: ENOXAPARIN 30MG/0.3ML SYR SUBCUT SCH (21:04)
[2021-06-02] VITALS (52 sets, daily range): BP systolic 90–169; BP diastolic 43–127
[2021-06-02] MEDS: BLOOD SUGAR DIAGNOSTIC STRIP TEST SCH ×5 (00:34→23:44)
[2021-06-02] MEDS: IPRATROPIUM/ALBUTEROL 0.5-3(2.5)MG/3ML NEB HHN SCH ×7 (00:41→20:43)
[2021-06-02] MEDS: METOCLOPRAMIDE HCL 10MG/2ML VIAL IV SCH ×4 (05:44→23:44)
[2021-06-02] MEDS: INSULIN LISPRO 100 UNITS/ML SUBCUT SCH ×5 (05:46→23:45)
[2021-06-02] MEDS: METHYLPREDNISOLONE SOD SUCC 40 MG/ML VIAL IV SCH ×2 (05:53→17:10)
[2021-06-02] MEDS: DILTIAZEM HCL 125 MG in DEXT 5% WATER 100 ML IV PRN ×2 (06:00→18:27)
[2021-06-02 06:25] LABS: CHLORIDE 107 mEq/L (98-107)
[2021-06-02 06:31] LABS: HEMATOCRIT. 41.5 % (42.0-52.0); HEMOGLOBIN. 13.9 g/dL (14.0-18.0); MEAN CORPUSCULAR HEMOGLOBIN 29.2 pg (28.0-32.0); MEAN CORPUSCULAR VOLUME 87.4 fL (80.0-94.0); MEAN PLATELET VOLUME 8.7 fl (7.4-10.4); PLATELET 208 x1000/uL (130-400); RED BLOOD CELL COUNT 4.75 mill/uL (4.7-6.1); RED CELL DISTRIBUTION WIDTH 13.3 % (11.6-14.6)
[2021-06-02] MEDS: ONDANSETRON HCL 4MG/2ML INJ IV PRN ×2 (08:58→14:38)
[2021-06-02] MEDS: AMLODIPINE 10MG TABLET PO SCH ×2 (09:00→15:11)
[2021-06-02] MEDS: MULTIVITAMINS,THER W-MINERALS TABLET PO SCH (09:00)
[2021-06-02] MEDS: METOPROLOL TARTRATE 50MG TABLET PO SCH ×3 (09:00→20:52)
[2021-06-02] MEDS: DOCUSATE SODIUM SUGAR FREE 100MG/10ML UDC NG SCH (09:00)
[2021-06-02] MEDS: RISPERIDONE 1MG TABLET PO SCH ×4 (09:00→20:51)
[2021-06-02] MEDS: ENOXAPARIN 30MG/0.3ML SYR SUBCUT SCH ×2 (09:03→20:55)
[2021-06-02] MEDS: VANCOMYCIN 1250MG in DEXTROSE 5% WATER 250ML IV SCH (09:10)
[2021-06-02 09:22] LABS: NUCLEATED RED BLOOD CELLS 1 /100 WBC; PLATELET ESTIMATE NORMAL
[2021-06-02] MEDS: DEXT 5%/0.9% NACL 1,000 ML IV SCH (11:11)
[2021-06-03] VITALS (47 sets, daily range): BP systolic 49–177; BP diastolic 21–118
[2021-06-03] MEDS: IPRATROPIUM/ALBUTEROL 0.5-3(2.5)MG/3ML NEB HHN SCH ×6 (00:54→20:21)
[2021-06-03] MEDS: ONDANSETRON HCL 4MG/2ML INJ IV PRN (01:57)
[2021-06-03] MEDS: INSULIN LISPRO 100 UNITS/ML SUBCUT SCH ×3 (06:00→17:54)
[2021-06-03 06:18] LABS: HEMATOCRIT. 41.8 % (42.0-52.0); HEMOGLOBIN. 13.6 g/dL (14.0-18.0); MEAN CORPUSCULAR HEMOGLOBIN 28.4 pg (28.0-32.0); MEAN CORPUSCULAR VOLUME 87.6 fL (80.0-94.0); MEAN PLATELET VOLUME 9.1 fl (7.4-10.4); PLATELET 244 x1000/uL (130-400); RED BLOOD CELL COUNT 4.78 mill/uL (4.7-6.1); RED CELL DISTRIBUTION WIDTH 13.4 % (11.6-14.6)
[2021-06-03] MEDS: BLOOD SUGAR DIAGNOSTIC STRIP TEST SCH ×3 (06:40→17:54)
[2021-06-03 06:41] LABS: CHLORIDE 107 mEq/L (98-107)
[2021-06-03] MEDS: DEXT 5%/0.9% NACL 1,000 ML IV SCH (06:44)
[2021-06-03] MEDS: METOCLOPRAMIDE HCL 10MG/2ML VIAL IV SCH ×3 (06:44→17:54)
[2021-06-03] MEDS: METHYLPREDNISOLONE SOD SUCC 40 MG/ML VIAL IV SCH (06:44)
[2021-06-03 08:08] LABS: PLATELET ESTIMATE NORMAL
[2021-06-03] MEDS: AMLODIPINE 10MG TABLET PO SCH (09:07)
[2021-06-03] MEDS: RISPERIDONE 1MG TABLET PO SCH ×2 (09:07→21:51)
[2021-06-03] MEDS: MULTIVITAMINS,THER W-MINERALS TABLET PO SCH (09:07)
[2021-06-03] MEDS: METOPROLOL TARTRATE 50MG TABLET PO SCH ×2 (09:07→21:51)
[2021-06-03] MEDS: DOCUSATE SODIUM SUGAR FREE 100MG/10ML UDC NG SCH (09:07)
[2021-06-03] MEDS: ENOXAPARIN 30MG/0.3ML SYR SUBCUT SCH ×2 (09:08→21:51)
[2021-06-04] VITALS: BP 164/96
[2021-06-04] MEDS: IPRATROPIUM/ALBUTEROL 0.5-3(2.5)MG/3ML NEB HHN SCH ×3 (00:33→10:15)
[2021-06-04] MEDS: METOCLOPRAMIDE HCL 10MG/2ML VIAL IV SCH ×4 (00:48→17:57)
[2021-06-04] MEDS: DEXT 5%/0.9% NACL 1,000 ML IV SCH ×2 (00:49→20:54)
[2021-06-04] MEDS: BLOOD SUGAR DIAGNOSTIC STRIP TEST SCH ×4 (00:49→17:58)
[2021-06-04] MEDS: HYDRALAZINE 20MG/ML VIAL IV PRN (00:49)
[2021-06-04 04:00] VITALS: BP 141/76
[2021-06-04] MEDS: INSULIN LISPRO 100 UNITS/ML SUBCUT SCH ×4 (06:00→17:57)
[2021-06-04 07:27] LABS: HEMATOCRIT. 40.2 % (42.0-52.0); HEMOGLOBIN. 13.6 g/dL (14.0-18.0); MEAN CORPUSCULAR HEMOGLOBIN 29.3 pg (28.0-32.0); MEAN CORPUSCULAR VOLUME 86.4 fL (80.0-94.0); MEAN PLATELET VOLUME 8.5 fl (7.4-10.4); PLATELET 254 x1000/uL (130-400); RED BLOOD CELL COUNT 4.65 mill/uL (4.7-6.1); RED CELL DISTRIBUTION WIDTH 13.3 % (11.6-14.6)
[2021-06-04 07:42] LABS: CHLORIDE 103 mEq/L (98-107)
[2021-06-04 08:01] VITALS: BP 13/72
[2021-06-04] MEDS: MULTIVITAMINS,THER W-MINERALS TABLET PO SCH (08:23)
[2021-06-04] MEDS: RISPERIDONE 1MG TABLET PO SCH ×2 (08:23→20:55)
[2021-06-04] MEDS: DOCUSATE SODIUM SUGAR FREE 100MG/10ML UDC NG SCH (08:23)
[2021-06-04] MEDS: ACETAMINOPHEN 650MG/20.3ML UDC PO PRN ×2 (08:24→18:05)
[2021-06-04] MEDS: AMLODIPINE 10MG TABLET PO SCH (09:00)
[2021-06-04] MEDS: ENOXAPARIN 30MG/0.3ML SYR SUBCUT SCH ×2 (09:00→20:56)
[2021-06-04] MEDS: METOPROLOL TARTRATE 50MG TABLET PO SCH ×2 (09:00→20:55)
[2021-06-04] MEDS ORDERED: METHYLPREDNISOLONE SOD SUCC 40 MG/ML VIAL IV SCH (09:00)
[2021-06-04 12:00] VITALS: BP 134/73
[2021-06-04 13:36] LABS: PLATELET ESTIMATE NORMAL
[2021-06-04 16:00] VITALS: BP 128/84
[2021-06-04 20:00] VITALS: BP 143/78
[2021-06-05] VITALS: BP 136/81
[2021-06-05] MEDS: METOCLOPRAMIDE HCL 10MG/2ML VIAL IV SCH ×3 (00:30→12:00)
[2021-06-05] MEDS: BLOOD SUGAR DIAGNOSTIC STRIP TEST SCH ×3 (00:30→12:00)
[2021-06-05 04:00] VITALS: BP 136/79
[2021-06-05] MEDS: INSULIN LISPRO 100 UNITS/ML SUBCUT SCH ×3 (06:00→12:00)
[2021-06-05 06:48] LABS: CHLORIDE 103 mEq/L (98-107)
[2021-06-05 06:52] LABS: HEMATOCRIT. 39.1 % (42.0-52.0); HEMOGLOBIN. 13.2 g/dL (14.0-18.0); MEAN CORPUSCULAR HEMOGLOBIN 29.1 pg (28.0-32.0); MEAN CORPUSCULAR VOLUME 85.9 fL (80.0-94.0); MEAN PLATELET VOLUME 8.4 fl (7.4-10.4); PLATELET 281 x1000/uL (130-400); RED BLOOD CELL COUNT 4.55 mill/uL (4.7-6.1); RED CELL DISTRIBUTION WIDTH 13.1 % (11.6-14.6)
[2021-06-05 08:00] VITALS: BP 132/86
[2021-06-05] MEDS: METOPROLOL TARTRATE 50MG TABLET PO SCH (10:28)
[2021-06-05] MEDS: MULTIVITAMINS,THER W-MINERALS TABLET PO SCH (10:28)
[2021-06-05] MEDS: RISPERIDONE 1MG TABLET PO SCH (10:28)
[2021-06-05] MEDS: AMLODIPINE 10MG TABLET PO SCH (10:29)
[2021-06-05] MEDS: ENOXAPARIN 30MG/0.3ML SYR SUBCUT SCH (10:29)
[2021-06-05] MEDS: DOCUSATE SODIUM SUGAR FREE 100MG/10ML UDC NG SCH (10:29)
[2021-06-05] MEDS ORDERED: ALBU18HF2 IH (11:08)
[2021-06-05] MEDS ORDERED: RISP1 PO (11:08)
[2021-06-05] MEDS ORDERED: METO-539 PO (11:08)
[2021-06-05] MEDS ORDERED: AMLO10TA80 PO (11:08)
[2021-06-05 11:20] VITALS: BP 135/75
[2021-06-05 15:02] LABS: PLATELET ESTIMATE NORMAL
== END 2021-06-05 13:40 | disposition home or self-care (01) | DRG 870 ==
LOC: ER 08:06 → MICUSO 12:21 → 5EST 05-26 10:04 → CVICU 05-26 15:44 → 8WST 06-03 23:53
PROVIDERS: ADMIT Internal Medicine; ATTEND Internal Medicine
PROC: 5A09457 Assistance with Respiratory Ventilation, 24-96 Consecutive Hours, Continuous Positive Airway Pressure (ICD-10-PCS; 2021-05-25)
PROC: 5A1955Z Respiratory Ventilation, Greater than 96 Consecutive Hours (ICD-10-PCS; principal; 2021-05-26)
PROC: 0BH17EZ Insertion of Endotracheal Airway into Trachea, Via Natural or Artificial Opening (ICD-10-PCS; 2021-05-26)
PROC: 02HV33Z Insertion of Infusion Device into Superior Vena Cava, Percutaneous Approach (ICD-10-PCS; 2021-05-27)
PROC: B548ZZA Ultrasonography of Superior Vena Cava, Guidance (ICD-10-PCS; 2021-05-27)
DX: A41.9 Sepsis, unspecified organism (principal); J69.0 Pneumonitis due to inhalation of food and vomit; G92.8 Other toxic encephalopathy; J80 Acute respiratory distress syndrome; N17.9 Acute kidney failure, unspecified; E46 Unspecified protein-calorie malnutrition; D68.9 Coagulation defect, unspecified; E87.1 Hypo-osmolality and hyponatremia; E83.39 Other disorders of phosphorus metabolism; T40.411A Poisoning by fentanyl or fentanyl analogs, accidental (unintentional), initial encounter; I10 Essential (primary) hypertension; E86.1 Hypovolemia; N32.89 Other specified disorders of bladder; R65.20 Severe sepsis without septic shock; T42.4X1A Poisoning by benzodiazepines, accidental (unintentional), initial encounter; F19.10 Other psychoactive substance abuse, uncomplicated; F15.10 Other stimulant abuse, uncomplicated; F12.10 Cannabis abuse, uncomplicated; F13.10 Sedative, hypnotic or anxiolytic abuse, uncomplicated; Z20.822 Contact with and (suspected) exposure to COVID-19; Z68.30 Body mass index [BMI] 30.0-30.9, adult; Z88.8 Allergy status to other drugs, medicaments and biological substances; Y92.89 Other specified places as the place of occurrence of the external cause
CPT/HCPCS: 36415; 36600; 71045; 71275; 76770; 76937; 80048; 80053; 80202; 80305; 80320; 81003; 82375; 82550; 82805; 82962; 83036; 83520; 83605; 83735; 83880; 84100; 84145; 84443; 84478; 84484; 84550; 85025; 85651; 86256; 87070; 87426; 92610; 93005; 93306; 93970; 94003; 94640; 94660; 97162; 99291; A6261; C1725; J0360; J0456; J0461; J0696; J1630; J1650; J1815; J1885; J2060; J2185; J2250; J2370; J2405; J2543; J2704; J2765; J2920; J2930; J3010; J3370; J3480; J3490; J7030; J7040; J7042; J7050; J7060; J7608; Q9967; A4315; G0480

== ENCOUNTER 2021-06-07 02:03 | Inpatient (IN) | payer BC, MEDICAID ==
[~2021-06-07] VITALS: Ht 167.6 cm; Wt 91.0 kg
[~2021-06-07 02:03] MED LIST: ALBU18HF2 IH; AMLO10TA80 PO; METO-539 PO; RISP1 PO
[2021-06-07] MEDS ORDERED: ASPIRIN 81MG TABLET PO ONE (02:45)
[2021-06-07] MEDS ORDERED: NITROGLYCERIN 0.4MG TABLET SL SL PRN (02:45)
[2021-06-07] MEDS ORDERED: SODIUM CHLORIDE 0.9% 1,000 ML IV ONE (02:45)
[2021-06-07 03:28] LABS: HEMATOCRIT. 38.4 % (42.0-52.0); HEMOGLOBIN. 13.1 g/dL (14.0-18.0); MEAN CORPUSCULAR VOLUME 85.3 fL (80.0-94.0); MEAN PLATELET VOLUME 8.2 fl (7.4-10.4); PLATELET 306 x1000/uL (130-400); RED BLOOD CELL COUNT 4.51 mill/uL (4.7-6.1)
[2021-06-07 03:30] LABS: CHLORIDE 99 mEq/L (98-107)
[2021-06-07 03:35] LABS: ETHANOL BLOOD < 10 mg/dL
[2021-06-07] MEDS ORDERED: SODIUM CHLORIDE 0.9% 1000ML BAG (SEPSIS BOLUS) IV ONE (03:45)
[2021-06-07] MEDS ORDERED: AZITHROMYCIN 500MG/250ML 250 ML IV ONE (03:45)
[2021-06-07] MEDS ORDERED: CEFTRIAXONE 1 G PREMIX 50 ML IV ONE (03:45)
[2021-06-07 04:13] LABS: *COCAINE SCREEN URINE NEGATIVE (NEGATIVE)
[2021-06-07 04:14] LABS: *BENZODIAZEPINES SCREEN URINE PRESUMTIVE POSITIVE (NEGATIVE); CANNABINOID URINE SCREEN PRESUMTIVE POSITIVE (NEGATIVE); METHADONE URINE SCREEN NEGATIVE (NEGATIVE); OPIATES URINE SCREEN NEGATIVE (NEGATIVE); PHENCYCLIDINE URINE SCREEN NEGATIVE (NEGATIVE)
[2021-06-07 04:15] LABS: *AMPHETAMINES SCREEN URINE NEGATIVE (NEGATIVE)
[2021-06-07 07:03] LABS: PLATELET ESTIMATE NORMAL
[2021-06-07] MEDS ORDERED: IPRATROPIUM/ALBUTEROL 0.5-3(2.5)MG/3ML NEB HHN PRN (08:15)
[2021-06-07] MEDS ORDERED: ONDANSETRON HCL 4MG/2ML INJ IV PRN (08:15)
[2021-06-07] MEDS ORDERED: HYDROCODONE/ACETAMINOPHEN 5/325MG TABLET PO PRN (08:15)
[2021-06-07] MEDS ORDERED: CEFTRIAXONE 1 G PREMIX 50 ML IV SCH (08:15)
[2021-06-07] MEDS ORDERED: CLONIDINE 0.1MG TABLET PO PRN (08:15)
[2021-06-07] MEDS ORDERED: ACETAMINOPHEN 325MG TABLET PO PRN (08:15)
[2021-06-07] MEDS ORDERED: GUAIFENESIN 200MG/10ML SUGAR FREE UDC PO PRN (08:15)
[2021-06-07] MEDS ORDERED: MAGNESIUM/ALUMINUM HYDROXIDE/SIMETHICONE 30ML UDC PO PRN (08:15)
[2021-06-07] MEDS ORDERED: DIPHENHYDRAMINE 50MG/ML VIAL IV PRN (08:15)
[2021-06-07] MEDS ORDERED: NALOXONE HCL 0.4MG/ML VIAL IV PRN (08:15)
[2021-06-07] MEDS ORDERED: DOCUSATE SODIUM 100MG CAPSULE PO PRN (08:15)
[2021-06-07] MEDS ORDERED: LORAZEPAM 2MG/ML CPJ IV PRN (08:15)
[2021-06-07] MEDS ORDERED: ENOXAPARIN 30MG/0.3ML SYR SUBCUT SCH (09:00)
[2021-06-07] MEDS ORDERED: POTASSIUM CHLORIDE 20MEQ TABLET SR PO NR (11:00)
[2021-06-07 13:45] VITALS: BP 114/67
[2021-06-07] MEDS ORDERED: SODIUM CHLORIDE 0.9% INJ 3ML FLUSH IVF SCH (14:00)
[2021-06-07 14:26] LABS: CLARITY URINE CLEAR (CLEAR); COLOR URINE YELLOW (YELLOW); KETONES URINE NEGATIVE (NEGATIVE); LEUKOCYTE ESTERASE URINE NEGATIVE (NEGATIVE); NITRITE URINE NEGATIVE (NEGATIVE); OCCULT BLOOD URINE NEGATIVE (NEGATIVE); PH URINE 5.5 (4.5-8.0); PROTEIN URINE NEGATIVE (NEGATIVE); SPECIFIC GRAVITY URINE 1.013 (1.005-1.030); UROBILINOGEN URINE 0.2 E.U./dL (0.2-1.0)
[2021-06-08] MEDS ORDERED: NALOXONE HCL 0.4MG/ML VIAL IV PRN (07:45)
[2021-06-08] MEDS ORDERED: CEFTRIAXONE 1,000 MG in DEXTROSE 5% WATER 50 ML IV SCH (09:00)
[2021-06-08 22:04] LABS: *BARBITURATES SCREEN URINE NEGATIVE (NEGATIVE)
== END 2021-06-07 15:00 | disposition left against medical advice (07) | DRG 392 ==
LOC: ER 02:03 → MICUSO 04:52
PROVIDERS: ADMIT Internal Medicine; ATTEND Internal Medicine
DX: K21.9 Gastro-esophageal reflux disease without esophagitis (principal); R65.10 Systemic inflammatory response syndrome (SIRS) of non-infectious origin without acute organ dysfunction; E87.6 Hypokalemia; Z20.822 Contact with and (suspected) exposure to COVID-19; I10 Essential (primary) hypertension; F12.90 Cannabis use, unspecified, uncomplicated; R00.0 Tachycardia, unspecified; Z53.29 Procedure and treatment not carried out because of patient's decision for other reasons; Z88.6 Allergy status to analgesic agent; Z79.899 Other long term (current) drug therapy
CPT/HCPCS: 36415; 71045; 80053; 80305; 80320; 81003; 83605; 83880; 84484; 85025; 87426; 93005; 99285; J0456; J0696; J1650; J7030; J7060; G0480

== ENCOUNTER 2021-06-08 10:38 | Inpatient (IN) | payer BC, MEDICAID ==
[~2021-06-08] VITALS: Ht 167.6 cm; Wt 90.7 kg
[2021-06-08] MEDS ORDERED: SODIUM CHLORIDE 0.9% 1,000 ML IV ONE (10:45)
[2021-06-08 11:49] LABS: HEMATOCRIT. 32.8 % (42.0-52.0); HEMOGLOBIN. 11.3 g/dL (14.0-18.0); MEAN CORPUSCULAR HEMOGLOBIN 29.5 pg (28.0-32.0); MEAN PLATELET VOLUME 7.7 fl (7.4-10.4); PLATELET 293 x1000/uL (130-400); RED BLOOD CELL COUNT 3.82 mill/uL (4.7-6.1); RED CELL DISTRIBUTION WIDTH 13.1 % (11.6-14.6)
[2021-06-08 11:57] LABS: CHLORIDE 105 mEq/L (98-107)
[2021-06-08 13:20] LABS: PLATELET ESTIMATE NORMAL
[2021-06-08] MEDS ORDERED: ACETAMINOPHEN 325MG TABLET PO PRN (15:30)
[2021-06-08] MEDS ORDERED: DIPHENHYDRAMINE 50MG/ML VIAL IV PRN (15:30)
[2021-06-08] MEDS ORDERED: MAGNESIUM/ALUMINUM HYDROXIDE/SIMETHICONE 30ML UDC PO PRN (15:30)
[2021-06-08] MEDS ORDERED: HYDROCODONE/ACETAMINOPHEN 5/325MG TABLET PO PRN (15:30)
[2021-06-08] MEDS ORDERED: ONDANSETRON HCL 4MG/2ML INJ IV PRN (15:30)
[2021-06-08] MEDS ORDERED: IPRATROPIUM/ALBUTEROL 0.5-3(2.5)MG/3ML NEB HHN PRN (15:30)
[2021-06-08] MEDS ORDERED: CLONIDINE 0.1MG TABLET PO PRN (15:30)
[2021-06-08] MEDS ORDERED: LORAZEPAM 2MG/ML CPJ IV PRN (15:30)
[2021-06-08] MEDS ORDERED: DOCUSATE SODIUM 100MG CAPSULE PO PRN (15:30)
[2021-06-08] MEDS ORDERED: GUAIFENESIN 200MG/10ML SUGAR FREE UDC PO PRN (15:30)
[2021-06-08] MEDS ORDERED: MORPHINE SULFATE 2 MG/ML CPJ (NOT FOR IM USE) IV PRN (15:30)
[2021-06-08 15:35] LABS: CLARITY URINE CLEAR (CLEAR); COLOR URINE YELLOW (YELLOW); KETONES URINE NEGATIVE (NEGATIVE); LEUKOCYTE ESTERASE URINE NEGATIVE (NEGATIVE); NITRITE URINE NEGATIVE (NEGATIVE); OCCULT BLOOD URINE NEGATIVE (NEGATIVE); PROTEIN URINE NEGATIVE (NEGATIVE); SPECIFIC GRAVITY URINE 1.011 (1.005-1.030); UROBILINOGEN URINE 0.2 E.U./dL (0.2-1.0)
[2021-06-08] MEDS ORDERED: NALOXONE HCL 0.4MG/ML VIAL IV PRN (16:00)
[2021-06-08] MEDS ORDERED: ENOXAPARIN 40MG/0.4ML SYR SUBCUT SCH (16:00)
[2021-06-08] MEDS ORDERED: LEVOFLOXACIN 500MG PREMIX 100 ML IV SCH (16:00)
[2021-06-08] MEDS ORDERED: IOHEXOL-350 100 ML BOTTLE ONE (21:13)
[2021-06-08] MEDS: SODIUM CHLORIDE 0.9% INJ 3ML FLUSH IVF SCH (21:27)
[2021-06-09] MEDS: SODIUM CHLORIDE 0.9% INJ 3ML FLUSH IVF SCH (05:50)
[2021-06-09 08:00] VITALS: BP 115/60
[2021-06-09 08:43] LABS: HEMATOCRIT. 32.2 % (42.0-52.0); HEMOGLOBIN. 11.1 g/dL (14.0-18.0); MEAN CORPUSCULAR HEMOGLOBIN 29.7 pg (28.0-32.0); MEAN CORPUSCULAR VOLUME 86.2 fL (80.0-94.0); MEAN PLATELET VOLUME 7.6 fl (7.4-10.4); PLATELET 289 x1000/uL (130-400); RED BLOOD CELL COUNT 3.74 mill/uL (4.7-6.1); RED CELL DISTRIBUTION WIDTH 12.9 % (11.6-14.6)
[2021-06-09 08:56] LABS: CHLORIDE 106 mEq/L (98-107)
[2021-06-09 09:09] LABS: CREATINE KINASE 105 IU/L (39-308); CREATINE KINASE MB FRACTION 1.3 ng/mL (0.5-3.6)
[2021-06-09 10:00] VITALS: BP 115/60
[2021-06-09 10:31] VITALS: BP 115/60
[2021-06-09 11:17] LABS: PLATELET ESTIMATE NORMAL
[2021-06-09 12:00] VITALS: BP 114/50
[2021-06-09 14:00] VITALS: BP 114/50
[2021-06-09 16:20] LABS: CREATINE KINASE 123 IU/L (39-308)
[2021-06-09 16:22] LABS: CREATINE KINASE MB FRACTION 1.3 ng/mL (0.5-3.6)
== END 2021-06-09 16:50 | disposition home or self-care (01) | DRG 193 ==
LOC: ER 10:38 → MICUSO 15:02 → 8WST 06-09 09:07
PROVIDERS: ADMIT Internal Medicine; ATTEND Internal Medicine
DX: J18.9 Pneumonia, unspecified organism (principal); J96.00 Acute respiratory failure, unspecified whether with hypoxia or hypercapnia; F17.200 Nicotine dependence, unspecified, uncomplicated; Z20.822 Contact with and (suspected) exposure to COVID-19
CPT/HCPCS: 36415; 71045; 71275; 80053; 81003; 82550; 82553; 84484; 85025; 87426; 93970; 99285; J1650; J1956; J7030; Q9967